=== PATIENT | female | born 1980 | race Caucasian/White ===

== ENCOUNTER → 2023-03-20 | Outpatient (CLI) | payer OTHER ==
--- NOTE | 2023-03-20 10:42 | XR ---
EXAMINATION TYPE: XR shoulder complete RT DATE OF EXAM: 03/20/2023 CLINICAL HISTORY: Pain after fall TECHNIQUE: Three views of the right shoulder are obtained. COMPARISON: None. FINDINGS: There is no acute fracture/dislocation evident in the right shoulder. The acromioclavicul ar and glenohumeral joint spaces appear within normal limits. The visualized ribs are intact and unr emarkable. Overlying bra strap is seen. IMPRESSION: There is no acute fracture or dislocation in the right shoulder.
--- NOTE | 2023-03-20 10:43 | XR ---
EXAMINATION TYPE: XR wrist complete RT DATE OF EXAM: 03/20/2023 CLINICAL HISTORY: Pain after fall TECHNIQUE: Frontal, lateral and oblique images of the right wrist are obtained. Fourth scaphoid view . COMPARISON: Prior right wrist x-ray March 04, 2014 FINDINGS: There is no acute fracture/dislocation evident in the right wrist. The joint spaces in th e right wrist appear stable and within normal limits. The overlying soft tissue appears unremarkable . IMPRESSION: There is no acute fracture or dislocation in the right wrist.
--- NOTE | 2023-03-20 10:46 | XR ---
EXAMINATION TYPE: XR cervical spine comp DATE OF EXAM: 03/20/2023 TECHNIQUE: Frontal, lateral, oblique, and open mouth view of the cervical spine are obtained. HISTORY: [id number], [id number], [id number] pain after fall COMPARISON: Prior cervical spine x-ray January 13, 2016 FINDINGS: The cervical spine is visualized in its entirety from C1 thru the mid T1 level, reversal o f normal cervical curvature redemonstrated without evidence of acute fracture or dislocation. The pr e-vertebral soft tissue appears within normal limits. The C1-C2 articulation is within normal limits on the open mouth view. Vertebral body heights are maintained. Mild disc space narrowing at C4-C5 an d C5-C6 levels is redemonstrated. Right oblique image is within normal limits. Left oblique image sub optimal in position, cannot exclude some new narrowing at C5-C6 level. Overlying soft tissues are unr emarkable. IMPRESSION: No acute fracture or dislocation is seen in the cervical spine.
== END | disposition home or self-care (01) ==
LOC: RADXRMAIN 09:58
PROVIDERS: ATTEND Emergency Medicine
DX: S13.4XXA Sprain of ligaments of cervical spine, initial encounter (principal); S40.011A Contusion of right shoulder, initial encounter; S60.211A Contusion of right wrist, initial encounter; W19.XXXA Unspecified fall, initial encounter
CPT/HCPCS: 72050